=== PATIENT | male | born 1950 | race Caucasian/White ===

== ENCOUNTER 2018-12-24 16:46 | Emergency (ER) | payer MEDICARE ==
[2018-12-24 17:12] VITALS: BP 135/84; PULSE 89; RESP 18; TEMP 98.5
[2018-12-24] MEDS ORDERED: DIPH,PERTUS(ACELL)TETVAC-LF 0.5 ML VIAL IM ONE (17:45)
--- NOTE | 2018-12-24 18:56 | CT ---
EXAMINATION TYPE: CT brain cspine wo con DATE OF EXAM: 12/24/2018 COMPARISON: None HISTORY: Fall. Left eye laceration. CT DLP: 1182.4 mGycm, Automated exposure control for dose reduction was used. CONTRAST: Patient injected with 0 mL of Isovue 300. CT of the brain is performed utilizing 3 mm thick sections through the posterior fossa and 3 mm thick sections through the remaining calvarium. Study is performed within 24 hours of arrival to the hospital. No abnormal hyperdensity is present to suggest an acute intracranial hemorrhage. No mass lesion is evident. No acute infarcts are evident. Ventricles and sulci are appropriate for the patient age. Calcification is within the bilateral inferior maxillary sinuses. Prior uncinectomies and ethmoidecto mies been performed. Sphenoid sinuses and frontal sinuses are clear. IMPRESSIONS: 1. No acute intracranial process. CT cervical spine. COMPARISON: None CT of the cervical spine is performed in the axial plane at 2 mm thick sections. Reconstructed image s in the coronal, and sagittal plane are reviewed on the computer. No acute fractures are evident. Vertebral body alignment is normal. Disc space narrowing is present C4-5 C5-6. Vertebral body heights are preserved. No spinal canal stenosis is evident. Left C2-C3 moderate foraminal narrowing is present due to hypertrophy. Mild to moderate foraminal queta rowing is present C3-4 due to facet hypertrophy and uncovertebral joint hypertrophy. Uncovertebral sandra int hypertrophy at C4-5 has mild bilateral foraminal stenosis and moderate to severe bilateral forami nal stenosis C5-6 IMPRESSIONS: 1. Uncovertebral joint hypertrophy and facet hypertrophy contributing to foraminal stenosis discussed above. 2. Degenerative disc changes mid cervical spine. 3. No acute osseous abnormality.
[2018-12-24] MEDS ORDERED: LIDOCAINE 1% INJ 10MG/ML (20 ML MDV) SQ STA (19:08)
--- NOTE | 2018-12-24 19:58 | CT ---
EXAMINATION TYPE: CT orbits wo con DATE OF EXAM: 12/24/2018 COMPARISON: None HISTORY: Fall. Left eye laceration. CT DLP: 1182.4 mGycm Automated exposure control for dose reduction was used. FINDINGS: Axial images at 2 mm thick sections were obtained through the orbits. There is mucosal thickening wit hin the inferior maxillary sinuses. Uncinectomies and ethmoidectomies been performed. The sphenoid si nuses and frontal sinuses are essentially clear. A small retention cyst may be within the inferior ri ght frontal sinus. Attention is paid to the orbits. Zygomatic arches and greater wings of sphenoid appear intact. The or bits are symmetrical. Intraconal and extraconal fat is normal. Optic nerves are normal. Superficial s oft tissues are unremarkable. Reconstructed images are reviewed on the computer in the coronal plane. There is right septal deviati on. Ostiomeatal units are patent. Orbital floors appear normal. IMPRESSION: NORMAL BILATERAL ORBITS.
--- NOTE | 2018-12-24 20:41 | ED ---
General Adult HPI - General Chief complaint: Wound/Laceration Stated complaint: LACERATION UNDER EYE Time Seen by Provider: 12/24/18 17:22 Source: patient, RN notes reviewed, old records reviewed Mode of arrival: ambulatory Limitations: no limitations - History of Present Illness Initial comments: 68-year-old male patient with past medical history of hypertension reports ED after suffering a fall approximately 4 hours prior to presentation. Patient reports that he was walking in back yard when he stumbled and fell forward into a pile of leaves. Patient reports that there was a wooden fence post in this pile of leaves that may contact with his left lateral orbit. Patient denies any loss of consciousness. Patient denies any use of blood thinners. Patient denies any headache. Patient denies any headache, states that vision is at baseline. Patient has a contusion to the lateral aspect of his left orbit. Patient also has an approximately 2 cm laceration in that region. Patient denies all other complaints today. Systemic: Pt denies fatigue, myalgia, fever/chills, rash. Pt denies weakness, night sweats, weight loss. Neuro: Pt denies headache, visual disturbances, syncope or pre-syncope. HEENT: Pt denies ocular discharge or irritation, otalgia, rhinorrhea, pharyngitis or notable lymphadenopathy. Cardiopulmonary: Pt denies chest pain, SOB, heart palpitations, dyspnea on exertion. Abdominal/GI: Pt denies abdominal pain, n/v/d. : Pt denies dysuria, burning w/ urination, frequency/urgency. Denies new onset urinary or bowel incontinence. MSK: Pt denies myalgia, loss of strength or function in extremities. Neuro: Pt denies new onset weakness, paresthesias. - Related Data Allergies Allergy/AdvReac Type Severity Reaction Status Date / Time No Known Allergies Allergy Verified 12/24/18 17:12 Review of Systems ROS Statement: Those systems with pertinent positive or pertinent negative responses have been documented in the HPI. ROS Other: All systems not noted in ROS Statement are negative. Past Medical History Past Medical History: Hypertension History of Any Multi-Drug Resistant Organisms: None Reported Additional Past Surgical History / Comment(s): Oral surgery Past Psychological History: No Psychological Hx Reported Smoking Status: Never smoker Past Alcohol Use History: None Reported Past Drug Use History: None Reported General Exam - General Exam Comments Initial Comments: Constitutional: NAD, AOX3, Pt has pleasant affect. HEENT: NC/AT, trachea midline, neck supple, no lymphadenopathy. Posterior pharynx non erythematous, without exudates. External ears appear normal, without discharge. TM pale antonio bilaterally, no bulging erythema or perforation. Mucous membranes moist. Eyes PERRLA, EOM intact. There is no scleral icterus. No pallor noted. Cardiopulmonary: RRR, no murmurs, rubs or gallops, no JVD noted. Lungs CTAB in anterior and posterior bingham. No peripheral edema. Abdominal exam: Abdomen soft and non-distended. Abdomen non-tender to palpation in all 4 quadrants. Bowel sounds active in LLQ. No hepatosplenomegaly. No ecchymosis Neuro: CN II-XII intact. No nuchal rigidity. No focal deficit or facial droop. MSK: Approximately 3 x 3 cm contusion noted to lateral aspect of left orbit. No facial crepitus. Approximately 2 cm laceration noted in that region. Wound was approximated with 3 simple interrupted sutures, patient tolerated procedure well. No posterior calf tenderness bilaterally, homans sign negative bilaterally. Posterior tibialis and radial pulse +2 bilaterally. Sensation intact in upper and lower extremities. Full active ROM in upper and lower extremities, 5/5 stregnth. Limitations: no limitations Course Vital Signs 12/24/18 17:07 Temperature 98.5 F Pulse Rate 89 Respiratory 18 Rate Blood Pressure 135/84 O2 Sat by Pulse 97 Oximetry Medical Decision Making - Medical Decision Making 68-year-old male patient with past medical history of hypertension reports ED after suffering a fall approximately 4 hours prior to presentation. Patient reports that he was walking in back yard when he stumbled and fell forward into a pile of leaves. Patient reports that there was a wooden fence post in this pile of leaves that may contact with his left lateral orbit. Patient denies any loss of consciousness. Patient denies any use of blood thinners. Patient denies any headache. Patient denies any headache, states that vision is at baseline. Patient has a contusion to the lateral aspect of his left orbit. Patient also has an approximately 2 cm laceration in that region. Patient denies all other complaints today. Pt VSS, afebrile. Physical exam displayed: Approximately 3 x 3 cm contusion noted to lateral aspect of left orbit. No facial crepitus. Approximately 2 cm laceration noted in that region. Wound was approximated with 3 simple interrupted sutures, patient tolerated procedure well. Neuro exam wnl. Repeat neuro exam wnl. Imaging modalities CT had not displayed no acute intracranial process. Degenerative changes of cervical spine. CT of orbits displayed no acute process. These findings were explained to patient length. Patient tetanus updated. Patient wound was closed with 3 simple interrupted sutures. Patient tolerated procedure well. Patient to follow up with primary care provider in 1-2 days for continued evaluation of symptoms. Patient to return to ED if new signs symptoms develop or condition worsens in any way. Case discussed in depth with Dr. Aguilar. Disposition Clinical Impression: Fall, Laceration Disposition: HOME SELF-CARE Condition: Stable Instructions (If sedation given, give patient instructions): Care For Your Stitches (ED), Fall Prevention for Older Adults (ED) Additional Instructions: Patient to adhere to previously discussed treatment plan and will take medication(s) as directed. Patient to follow up with PCP in 1-2 days. Patient to return to ED if symptoms do not improve. Please return for suture removal: Hand: 7-10 days Face: 5 days Chest/abdomen: 12-14 days Extremities: 7-10 days Scalp: 7 days Eyebrow: 5-7 days Foot/sole: 12-14 days Please monitor for signs and symptoms of infection including: redness, warmth, drainage, discharge. Please return to ED if these signs or symptoms occur, new signs or symptoms develop or if condition worsens in anyway. Is patient prescribed a controlled substance at d/c from ED?: No Referrals: Didi Hoskins MD [Primary Care Provider] - 1-2 days Time of Disposition: 20:41
== END 2018-12-24 20:59 | disposition home or self-care (01) ==
LOC: EC 16:46
DX: S05.42XA Penetrating wound of orbit with or without foreign body, left eye, initial encounter (principal); M47.812 Spondylosis without myelopathy or radiculopathy, cervical region; Z23 Encounter for immunization; W01.0XXA Fall on same level from slipping, tripping and stumbling without subsequent striking against object, initial encounter; Y93.01 Activity, walking, marching and hiking; Y92.096 Garden or yard of other non-institutional residence as the place of occurrence of the external cause
CPT/HCPCS: 99284; 12011; 90471; 72125; 70450; 70480; 90715; J2001

== ENCOUNTER → 2022-11-29 | Outpatient (CLI) | payer MEDICARE ==
--- NOTE | 2022-11-29 11:45 | XR ---
EXAMINATION TYPE: XR KUB DATE OF EXAM: 11/29/2022 COMPARISON: NONE HISTORY: HEMATURIA TECHNIQUE: One view abdominal series FINDINGS: The osseous structures are intact. The bowel gas pattern is nonspecific. Lung bases are clear. Scol iosis with severe multilevel degenerative disc disease. Bilateral hip arthropathy. Calcifications in the pelvis are likely vascular. IMPRESSION: 1. Nonspecific abdomen.
== END | disposition home or self-care (01) ==
LOC: RADXRYALE 11:20
PROVIDERS: ATTEND Internal Medicine
DX: R31.9 Hematuria, unspecified (principal)
CPT/HCPCS: 74018

== ENCOUNTER 2023-09-06 08:25 | Day surgery (SDC) | payer MEDICARE ==
[2023-09-01 15:32] VITALS: BMI 35.9
[~2023-09-06 08:25] MED LIST: LACTATED RINGERS 1,000 ML IV SCH; LIDOCAINE 1% (10MG/ML) FOR IV START INTRADERMA PRN
[2023-09-06] MEDS ORDERED: LACTATED RINGERS 1,000 ML IV ONE (09:08)
[2023-09-06] MEDS ORDERED: PHENYLEPHRINE-0.9% NACL SYG 1,000 MCG/10 ML SYRINGE ONE (09:17)
[2023-09-06] MEDS ORDERED: LIDOCAINE 1% INJ 10MG/ML (20 ML MDV) ONE (09:17)
[2023-09-06] MEDS ORDERED: PROPOFOL 10 MG/ML 20 ML VIAL IV ONE (09:17)
[2023-09-06 09:18] VITALS: TEMP 97.1
--- NOTE | 2023-09-06 09:37 | P.PCN ---
Date of Procedure: 09/06/23 Procedure(s) Performed: BRIEF HISTORY: Patient is a 73-year-old pleasant white male scheduled for an elective colonoscopy as a part of screening for colon cancer. PROCEDURE PERFORMED: Colonoscopy. PREOPERATIVE DIAGNOSIS: Screening for colon cancer. IV sedation per Anesthesia. PROCEDURE: After informed consent was obtained, the patient, was brought into the endoscopy unit. IV sedation was administered by Anesthesia under continuous monitoring. Digital rectal examination was normal. Initially the Olympus CF-160 flexible video colonoscope was then inserted in the rectum, gradually advanced into the cecum without any difficulty. Careful examination was performed as the scope was gradually being withdrawn. Ileocecal valve and the appendiceal orifice were visualized and appeared normal. Prep was excellent. Mucosa of the cecum, ascending colon, transverse colon, descending colon, sigmoid colon, and rectum appeared normal. Retroflexion was performed in the rectum and no lesions were seen. The patient tolerated the procedure well. IMPRESSION: Normal-appearing colon from rectum to cecum with no evidence of colorectal neoplasia . RECOMMENDATIONS: Findings of this examination were discussed with the patient well as his family. He was advised to have a repeat screening colonoscopy in 10 years..
[2023-09-06 10:16] VITALS: BP 107/67; PULSE 77; RESP 16
== END 2023-09-06 10:19 | disposition home or self-care (01) ==
LOC: ORWHC2ENDO 08:25
PROVIDERS: ATTEND Internal Medicine Gastroenterology
DX: Z12.11 Encounter for screening for malignant neoplasm of colon (principal); I10 Essential (primary) hypertension; E78.5 Hyperlipidemia, unspecified; M19.90 Unspecified osteoarthritis, unspecified site; Z79.82 Long term (current) use of aspirin; Z79.899 Other long term (current) drug therapy
CPT/HCPCS: J2001; J2704; J2371; G0121